=== PATIENT | male | born 1985 | race Caucasian/White ===

== ENCOUNTER 2017-10-19 09:37 | Emergency (ER) | payer OTHER ==
[~2017-10-19] VITALS: Ht 195.6 cm; Wt 90.3 kg
[2017-10-19] MEDS ORDERED: ACYCLOVIR200 MG ORAL (10:16)
[2017-10-19 10:44] VITALS: BP 127/84
--- NOTE | 2017-10-19 12:40 | Emergency Room Report ---
History of Present Illness General Chief Complaint: Upper Respiratory Illness Source: Patient Present Illness HPI 32-year-old male, presenting with ulcerations in the mouth for 4 days. States that he has never had this before. Denies being in close contact with any other person with same symptoms. No fever no chills no other complaints Allergies: Uncoded Allergies: BEE STINGS (Allergy, Unknown, 10/19/17) Patient History Past Medical History: see triage record Past Surgical History: none Pertinent Family History: none Reviewed Nursing Documentation: PMH: Agreed, PSxH: Agreed Nursing Documentation-PMH Hx Asthma: Yes Review of Systems All Other Systems: negative except mentioned in HPI Physical Exam Vital Signs Date Time Temp Pulse Resp B/P (MAP) Pulse Ox O2 Delivery O2 Flow Rate FiO2 10/19/17 09:41 97.9 82 16 136/81 96 Room Air 97.9 Sp02 EP Interpretation: reviewed, normal General Appearance: normal inspection, well appearing, no apparent distress, alert, GCS 15, non-toxic Head: normocephalic, atraumatic Eyes: bilateral eye normal inspection, bilateral eye PERRL, bilateral eye EOMI ENT: other - Ulcerations noted on lips, tongue, hard palate Neck: normal inspection, full range of motion, supple Respiratory: normal inspection, lungs clear, normal breath sounds, no respiratory distress, no retraction, no wheezing, speaking full sentences, chest symmetrical Cardiovascular #1: normal inspection, regular rate, rhythm, no edema, normal capillary refill Cardiovascular #2: 2+ radial (R), 2+ radial (L) Gastrointestinal: normal inspection, non tender, soft, non-distended, no guarding Genitourinary: no CVA tenderness Musculoskeletal: normal inspection, back normal, normal range of motion, non- tender Neurologic: normal inspection, alert, oriented x3, responsive, motor strength/ tone normal, sensory intact, normal gait, speech normal Psychiatric: normal inspection, judgement/insight normal, memory normal Skin: normal inspection, normal color, no rash, warm/dry, well hydrated, normal turgor Medical Decision Making Diagnostic Impression: Primary Impression: Oral ulceration ER Course 32-year-old male with ulcerations in the mouth DDX: Appear to be mucocutaneous hsv Plan: none ER course: Patient has remained stable during ED stay. Disposition: Patient is to be discharged to home. Prescriptions given are acyclovir Patient is instructed to follow up with their primary care doctor within 5 days. Please note that this Emergency Department Report was dictated using [employer] software, occasionally this can lead to erroneous entry secondary to interpretation by the dictation equipment Last Vital Signs Date Time Temp Pulse Resp B/P (MAP) Pulse Ox O2 Delivery O2 Flow Rate FiO2 10/19/17 10:44 78 19 Room Air 10/19/17 10:44 98.0 127/84 99 98.0 Disposition: HOME, SELF-CARE Condition: Stable Scripts Acyclovir* (ACYCLOVIR*) 200 Mg Capsule 200 MG ORAL FIVE TIMES A DAY for 5 Days, #25 CAP 0 Refills Prov: Bayron Grewal M.D. 10/19/17 Referrals: NON PHYSICIAN (PCP) Patient Instructions: Herpes Labialis Bayron Grewal M.D. Oct 19, 2017 12:40
== END 2017-10-19 10:50 | disposition home or self-care (01) ==
LOC: EMR 10:20
DX: K12.1 Other forms of stomatitis (principal); J45.909 Unspecified asthma, uncomplicated; Z91.030 Bee allergy status
CPT/HCPCS: 99283